=== PATIENT | female | born 1970 | race African-American/Black ===

== ENCOUNTER 2022-12-31 15:38 | Emergency (ER) | payer MEDICARE, MEDICAID ==
[~2022-12-31] VITALS: Ht 160 cm; Wt 100.0 kg
[2022-12-31 15:45] VITALS: O2SAT 99
[2022-12-31] MEDS ORDERED: CYCL10TA21 MT (16:30)
[2022-12-31] MEDS ORDERED: NAPR-681 MT (16:30)
[2022-12-31] MEDS ORDERED: KETOROLAC 30MG/ML VIAL IM ONE (17:00)
[2022-12-31 17:30] VITALS: BP 145/78; PULSE 87; RESP 19; TEMP 98
== END 2022-12-31 17:31 | disposition home or self-care (01) ==
LOC: ER 15:38
DX: M79.18 Myalgia, other site (principal); E11.9 Type 2 diabetes mellitus without complications; I10 Essential (primary) hypertension; Z90.710 Acquired absence of both cervix and uterus; Z88.0 Allergy status to penicillin
CPT/HCPCS: 99283; 81025; 96372; J1885

== ENCOUNTER 2023-02-01 13:11 | Emergency (ER) | payer MEDICARE, MEDICAID ==
[~2023-02-01] VITALS: Ht 160 cm; Wt 97.0 kg
[~2023-02-01 13:11] MED LIST: CYCL10TA21 MT; NAPR-681 MT
[2023-02-01 13:39] VITALS: BP 160/113; PULSE 95; RESP 16; TEMP 97.9; O2SAT 98
== END 2023-02-01 17:42 | disposition left against medical advice (07) ==
LOC: ER 13:11
DX: M79.675 Pain in left toe(s) (principal); Z53.21 Procedure and treatment not carried out due to patient leaving prior to being seen by health care provider
CPT/HCPCS: 99281